=== PATIENT | male | born 1980 | race African-American/Black ===

== ENCOUNTER 2021-01-20 07:42 | Outpatient (CLI) | payer OTHER, SELFPAY ==
--- NOTE | 2021-02-11 07:38 | WPDHOMESLEEP ---
Sleep Study - Home Unattended Date of Study: 01/20/21 Ordering Provider: Polo Garcia MD Interpreting Provider: Keli Alberto MD Home Sleep Study Type: Watch PAT Height: 1.7 m Weight: 74.843 kg Body Mass Index: 25.8 Neck Circumference (inches): 14.50 [place]: 5 Reason for Sleep Study Jerking during sleep and holding his breath Sleep History Babatunde Oviedo is a 40 year old man who Jerks and hold his breath while sleeping. This happens irregularly. This has been going on for longer than 2 years. He does not awaken from sleep feeling short of breath and does not awaken at night with heartburn, belching or coughing. He rarely snores. He does not snore loudly enough that others complain. He does not have trouble sleeping with a cold. He does not wake up gasping for breath at night. He rarely has breathing problems at night observed by others. He occasionally sweats excessively at night. He does not notice his heart pounding or beating irregularly at night. He does not fall asleep during the day, does not fall asleep involuntarily or while driving. He does not have loss of muscle tone with strong emotion. He does not have daytime difficulties due to excessive sleepiness. He does not feel paralyzed on waking or falling asleep. He occasionally has vivid dreamlike scenes upon awakening or falling asleep. He does not feel afraid to go to sleep. He does not have nightmares. He occasionally remembers his dreams. He occasionally has racing thoughts. He does not feel sad depressed or have anxiety. He does not have muscular tension. He does not notice parts of his body jerking. He rarely kicks at night. He does not have crawling or aching feelings in his legs or any kind of leg pain at night. He does not have morning jaw pain or grind his teeth during sleep. He is not bothered by pain during the day, is not awakened by pain at night. He does not wake up feeling stiff in the morning with sore achy muscles or pain in the neck and spine. He reports a 5 lb weight loss in the last year. Normal bedtime is 9:30 p.m. falling asleep within 30 minutes typically waking once at night to go the bathroom. It takes him between 10 and 20 minutes to return to sleep. He wakes the morning at 3:45 a.m.. On the weekends he goes to bed later 11:00 p.m. and wakes at 7:30 a.m.. He estimates getting 5-6 hours of sleep at night. He does not take naps in the afternoon or evening. He does not feel refreshed after short nap. He normally feels good in the morning, and he feels better in the morning compared to other times of day. Habits: never smoked tobacco. No caffeine, alcohol or recreational drugs. 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 Prior to using the device, the patient received verbal and written instructions for its application and was provided with the help desk phone number for addition
[2021-02-11 07:55] VITALS: BMI 25.8
== END 2021-01-21 13:33 | disposition home or self-care (01) ==
LOC: ANHCSM 07:50
PROVIDERS: PCP Family Medicine; Visit Provider Family Medicine
DX: G47.00 Insomnia, unspecified (principal); R06.81 Apnea, not elsewhere classified
CPT/HCPCS: 95800

== ENCOUNTER 2023-05-07 11:48 | Outpatient (CLI) | payer OTHER, SELFPAY ==
--- NOTE | ~2023-05-07 | XR_ITS ---
Left Knee Technique: AP, lateral, and sunrise views were obtained. Clinical History: Pain Findings: No fracture or dislocation is seen. Osseous alignment is anatomic. Joint spaces are preserv ed without degenerative or erosive change. Soft tissues are unremarkable. No joint effusion is seen. Impression: Unremarkable left knee radiographs. Reviewed, dictated and finalized at location . [employer] Impression: Unremarkable left knee radiographs.
== END 2023-05-07 11:49 | disposition home or self-care (01) ==
LOC: ANHIMG 11:51
PROVIDERS: PCP Family Medicine; Visit Provider Physician Assistant Medical
DX: M25.562 Pain in left knee (principal)
CPT/HCPCS: 73562

== ENCOUNTER 2023-07-05 07:06 | Outpatient (CLI) | payer OTHER, SELFPAY ==
--- NOTE | ~2023-07-05 | MR_ITS ---
MRI of the left knee Clinical history: Pain Technique: Coronal proton density and proton density-weighted images, sagittal proton-density and T2 fat-sat images, and axial proton-density fat-saturated images were acquired. Findings: Anterior and posterior cruciate ligaments are intact. Medial collateral ligament and the la teral collateral ligament complex are intact. Popliteus tendon is intact. Medial and lateral menisci are intact, without evidence of tear. Articular cartilage is well preserved throughout the knee. Bone marrow signals are unremarkable. Smal l ganglion cyst present posterior to the ACL. Extensor mechanism is intact. No joint effusion or Sauceda's cyst. Impression: Small ganglion cyst along the posterior margin of the ACL. No acute abnormality evident. Reviewed, dictated and finalized at location . CAP Impression: Small ganglion cyst along the posterior margin of the ACL. No acute abnormality evident.
== END 2023-07-05 07:07 ==
DX: M67.462 Ganglion, left knee (principal)
CPT/HCPCS: 73721

== ENCOUNTER 2025-04-27 02:27 | Day surgery (SDC) | payer OTHER, SELFPAY ==
[2025-04-17 14:40] VITALS: BMI 24.5
--- OUTSIDE RECORDS SUMMARY | 2025-04-27 02:30 | XMS_ITS | Clinical Summary ---
Author Organization [facility] Address [address] [place] [address] Phone Care Team Providers Care Microbiological Analyst Name Role Phone Polo Garcia MD Primary Care Provider [phone] Allergies No known active allergies Medications No known medications Active Problems No known active problems Immunizations Immunization Administration Dates Next Due (ADACEL/BOOSTRIX)(10 YR UP) TDAP VACCINE, 0.5ML, IM 07/25/2014 Family History Medical History Relation Name Comments No Known Problems Brother 1 No Known Problems Brother 2 Asthma Daughter 1 No Known Problems Daughter 2 Diabetes Father Pacemaker Father Sudden Maternal Grandfather Murder Alzheimer's Disease Maternal Grandmother Arthritis-rheumatoid Mother Other Mother Ezv Johnsons syndrome Heart Disease Paternal Grandfather Cancer Paternal Grandmother No Known Problems Sister Relation Name Status Comments Brother 1 Alive Brother 2 Alive Daughter 1 Alive Daughter 2 Alive Father Alive Maternal Grandfather Maternal Grandmother Mother Paternal Grandfather Paternal Grandmother Sister Alive Social History Tobacco Use Types Packs/Day Years Used Date Smoking Tobacco: Never Smokeless Tobacco: Never Alcohol Use Standard Drinks/Week Comments No 0 (1 standard drink = 0.6 oz pur e alcohol) Sex and Gender Information Value Date Recorded Sex Assigned at Not on file 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 Gender Identity Not on file Sexual Orientation Not on file Last Filed Vital Signs Vital Sign Reading Time Taken Comments Blood Pressure 108/68 08/03/2018 9:02 AM CDT Pulse 90 08/03/2018 9:02 AM CDT Temperature 36.6 C (97.8 F) 08/03/2018 9:02 AM CDT Respiratory Rate 18 08/03/2018 9:02 AM CDT Oxygen Saturation 98% 08/03/2018 9:02 AM CDT Inhaled Oxygen Concentration - - Weight 77.1 kg (170 lb) 08/03/2018 9:02 AM CDT Height 170.2 cm (5' 7) 08/03/2018 9:02 AM CDT Body Mass Index 26.63 08/03/2018 9:02 AM CDT Plan of Treatment Health Maintenance Due Date Last Done Comments HEPATITIS B VACCINES (1 of 3 - 19+ 3-dose series) 03/25 HPV VACCINES (1 - 3-dose SCDM series) 2007 DTAP/TDAP/TD VACCINES (2 - Td or Tdap) 07/25/2024 INFLUENZA VACCINE (#1) 2024 COLORECTAL SCREENING 2025 Colorectal Cancer Screening 2025 FIT-DNA Q 3 years 2025 FIT/FOBT Q 1 year 2025 Flex Sig/CT Colonography Q 5 years 2025 Insurance OPEN ACCESS * Guarantor: [employer] Account Type Relation to Patient Date of Phone Billing Address Corporate Employer ATTN: [employer] [address] [address] Care Teams Microbiological Analyst Relationship Specialty Start Date End Date Polo Garcia MD [address] [place] [address] PCP - General Family Practice 03/15/18
--- OUTSIDE RECORDS SUMMARY | 2025-04-27 02:30 | XMS_ITS | Clinical Summary ---
Author Organization [facility] Address [address] [place] [address] Care Team Providers Care Cytogenetic Technician Name Role Phone Polo Garcia MD Primary Care Provider [phone] Source Comments [facility],non-owned Affiliates and Associated Physician Practices is amultiple site organization consisting of ambulatory clinics and hospital sitesin [place] and [place]. This disclosure is being madepursuant to the Care Everywhere program and may not contain all information available regarding this patient. 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 Gender Identity Not on file Sexual Orientation Not on file Last Filed Vital Signs Vital Sign Reading Time Taken Comments Blood Pressure 113/67 07/25/2014 6:40 AM ANGLEDOZER OPERATOR Pulse 89 07/25/2014 6:40 AM ANGLEDOZER OPERATOR Temperature 36.8 C (98.2 F) 07/25/2014 5:35 AM ANGLEDOZER OPERATOR Respiratory Rate 16 07/25/2014 6:40 AM ANGLEDOZER OPERATOR Oxygen Saturation 97% 07/25/2014 6:40 AM ANGLEDOZER OPERATOR Inhaled Oxygen Concentration - - Weight 77.1 kg (170 lb) 07/25/2014 5:26 AM ANGLEDOZER OPERATOR Height 170.2 cm (5' 7) 07/25/2014 5:26 AM ANGLEDOZER OPERATOR Body Mass Index 26.63 07/25/2014 5:26 AM ANGLEDOZER OPERATOR Plan of Treatment Health Maintenance Due Date Last Done Comments COLOGUARD (AGES 45-75) - COL ON CA SCREENING 1980 COLON MONITORING 1980 COLONOSCOPY - COLON CA SCREENING 1980 CT COLONOGRAPHY - COLON CA SCREENING 1980 Colorectal Cancer Screening 1980 FIT - COLON CA SCREENING 1980 FLEX SIG - COLON CA SCREENING 1980 LIPID TESTING 1980 HIV SCREENING 1995 HEPATITIS C SCREENING 04/13/1998 HEPATITIS B VACCINE (1 of 3 - 19+ 3-dose series) 1999 HPV VACCINE (1 - 3-dose SCDM series) 2007 DEPRESSION SCREENING 05/24/2024 DTAP/TDAP/TD VACCINES (2 - T d or Tdap) 07/25/2024 07/25/2014 COVID-19 VACCINE (2024-2 6 season) 2025 INFLUENZA VACCINE (#1) 2025 ZOSTER VACCINE (1 of 2) 2030 HIB VACCINE Aged Out No longer eligi ble based on patient's age to complete this topic MENINGOCOCCAL (Group B) VACC INE SHARED DECISION-MAKING Aged Out No longer eligibl e based on patient's age to complete this topic MENINGOCOCCAL GROUPS A/C/Y/W VACCINE Aged Out No longer eligible b ased on patient's age to complete this topic PNEUMOCOCCAL VACCINE Aged Out No long er eligible based on patient's age to complete this topic Insurance [employer] Care Teams Cytogenetic Technician Relationship Specialty Start Date End Date Polo Garcia MD PCP - General Family Medicine 07/25/14
--- OUTSIDE RECORDS SUMMARY | 2025-04-27 02:30 | XMS_ITS | Clinical Summary ---
Author Organization [facility] Address [address] [place] [address] Care Team Providers Care Roller Skate Repairer Name Role Phone Polo Garcia MD Primary Care Provider [phone] Allergies No known active allergies Medications No known medications Active Problems Problem Noted Date Diagnosed Date Primary osteoarthritis of left knee 12/28/2023 Closed fracture of lateral portion of left tibia l plateau 10/06/2018 Social History Tobacco Use Types Packs/Day Years Used Date Smoking Tobacco: Never Smokeless Tobacco: Never Tobacco Cessation:Counseling Given: Not Answered AUDIT-C Answer Date Recorded Q1: How often do you have a drink containing alcohol? Never 06/06/2024 Q2: How many drinks containi ng alcohol do you have on a typical day when you are drinking? Patient does not drink Q3: How often do you have si x or more drinks on one occasion? 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 Gender Identity Not on file Sexual Orientation Not on file Last Filed Vital Signs Vital Sign Reading Time Taken Comments Blood Pressure 106/70 12/05/2024 1:19 PM CDT Pulse 88 12/05/2024 1:19 PM CDT Temperature - - Respiratory Rate - - Oxygen Saturation - - Inhaled Oxygen Concentration - - Weight 72.1 kg (159 lb) 12/05/2024 1:19 PM CDT Height 167.6 cm (5' 6) 12/05/2024 1:19 PM CDT Body Mass Index 25.66 12/05/2024 1:19 PM CDT Plan of Treatment Health Maintenance Due Date Last Done Comments Colon Cancer Screening-Colonoscopy 1980 Depression Screening 1980 Hepatitis C Screening 1980 Prostate Cancer Screening-PSA 1980 Varicella Vaccines (1 of 2 - 13+ 2-dose series) 1993 Hepatitis B Screening 1998 Regular Well Visit/Exam 18-64 1998 HPV Vaccines (1 - 3-dose SCD M series) 2007 DTaP/Tdap/Td Vaccine (2 - Td or Tdap) 07/25/2024 07/25/2014 Covid-19 Vaccine (4 - 2024-2 6 season) 2025 05/25/2022, 03/13/2021, 02/20/2021 Influenza Vaccine (#1) 2025 Pneumococcal vaccine <65 Aged Out No longer eligible based on patient's age to complete this topic Insurance [employer] Care Teams Roller Skate Repairer Relationship Specialty Start Date End Date Polo Garcia MD PCP - General Family Medicine 09/09/18
[2025-04-27 09:07] VITALS: BP 111/73; PULSE 92; RESP 20; TEMP 36.3; O2SAT 100
[2025-04-27] MEDS: LACTATED RINGERS 1,000 ML 150 ML IV CONT (09:21)
--- NOTE | 2025-04-27 09:57 | PM.IMHP2 ---
H&P: HPI History of Present Illness Date/Time: 04/27/25 09:57 Chief Complaint: Screening colonoscopy Narrative: This is the patient's first colonoscopy. There are no GI symptoms and there is no family history of colorectal cancer. Review of Systems Review of Systems: All systems reviewed & are unremarkable except as noted in HPI and below [facility] Past Medical History Medical History (Updated 04/12/25 @ 13:54 by Roberta Cervantes APRN) Screening for colon cancer Family hx of prostate cancer Acute stress reaction Body mass index (bmi) 25.0-25.9, adult (01/04/17) Sinusitis Nocturnal leg movements Muscle cramp Witnessed apneic spells Lara's palsy Left knee pain BRBPR (bright red blood per rectum) Constipation Acute otitis media with effusion of left ear BMI 26.0-26.9,adult Family History Family History Father Diabetes mellitus Pacemaker Mother Rheumatoid arthritis Heart disease Hypertension Abdominal aneurysm Sibling Hypertension Social History Social History Smoking status: Never smoker Second hand tobacco smoke exposure: No Alcohol intake: never Substance use: former Substance use type: does not use Living arrangements: with family Occupation/Education: occupation 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 Gender identity (if verbalized by the patient): Male Spiritual care concerns: No Meds Home Medications and Allergies Home Medications ?Medication ?Instructions ?Recorded ?Confirmed ?Type sildenafil 25 mg tablet 25 mg PO DAILY PRN sexual activity 11/11/20 04/17/25 History Allergies Allergy/AdvReac Type Severity Reaction Status Date / Time No Known Allergies Allergy Verified 04/27/25 09:06 Vital Signs Vital Signs - 24 hr 04/27/25 09:07 Temperature 97.3 F L Pulse Rate 92 Respiratory Rate 20 Blood Pressure 111/73 Pulse Oximetry 100 Oxygen Delivery Room Air Exam Const: General: cooperative and healthy appearing Resp: Effort & Inspection: normal respiratory effort and able to speak in complete sentences Auscultation: clear to auscultation bilaterally Cardio: Rate: regular rate Rhythm: regular rhythm GI: Inspection: normal to inspection GI Palp: No No hepatosplenomegaly present Auscultation: normal bowel sounds Rectal Exam: deferred Skin: General skin exam: normal color Psych: Appearance: grossly normal Mental Status: mental status grossly normal Assessment and Plan Assessment and plan (1) Screening for colon cancer: Code(s): Z12.11 - Encounter for screening for malignant neoplasm of colon Status: Acute Assessment and Plan: The patient is deemed a good candidate for the procedure. Consent signed. Will proceed. Prior Studies I have reviewed the following patient records and this information was taken into consideration when formulating the assessment and plan.: previous labs, previous ER visits, previous hospitalizations and previous clinic visits
[2025-04-27] MEDS: SIMETHICONE ORAL SUSPENSION 20 MG/0.3 ML 30 ML BOTTLE 0.6 ML IRRIGATION (10:18)
[2025-04-27 10:28] VITALS: BP 131/102; PULSE 76; RESP 24; O2SAT 98
[2025-04-27 10:38] VITALS: BP 89/63; PULSE 72; RESP 16; O2SAT 100
[2025-04-27 10:48] VITALS: BP 97/64; PULSE 71; RESP 17; O2SAT 99
== END 2025-04-27 11:39 | disposition home or self-care (01) ==
PROVIDERS: PCP Family Medicine; Referring Provider Nurse Practitioner Family; Visit Provider Internal Medicine Gastroenterology
PROC: 0DJD8ZZ Inspection of Lower Intestinal Tract, Via Natural or Artificial Opening Endoscopic (ICD-10-PCS; CPT 45378; principal; 2025-04-27 10:30)
DX: Z12.11 Encounter for screening for malignant neoplasm of colon (principal); K64.8 Other hemorrhoids; Z80.42 Family history of malignant neoplasm of prostate; Z82.49 Family history of ischemic heart disease and other diseases of the circulatory system
CPT/HCPCS: 45378; J2003; J2704; J7120